=== PATIENT | female | born 1990 | race Caucasian/White ===

== ENCOUNTER 2018-09-20 05:54 | Day surgery (SDC) | payer BC ==
[2018-09-20] VITALS (10 sets, daily range): BP systolic 96–121; BP diastolic 62–74; PULSE 69–80; RESP 11–24; Ht 160 cm; Wt 70.0 kg
[~2018-09-20] VITALS: Ht 160 cm; Wt 70.0 kg
[2018-09-20] MEDS ORDERED: ACETAMINOPHEN 500 MG TAB PO ONE (07:00)
--- NOTE | 2018-09-20 07:04 | PREAC ---
Date/Time of Note Date/Time of Note DATE: 09/20/18 TIME: 07:02 Anesthesia Eval and Record Evaluation Time Pre-Procedure Interview DATE: 09/20/18 TIME: 07:02 Age 27 Sex female NPO: 8 hrs Preoperative diagnosis abnormal pap smear Planned procedure cold knife cone biopsy Past Medical History Past Medical History: None Surgery & Anesthesia Issues No known issue Meds Anticoagulation: No Beta Radhika within 24 hr: No Reason Beta Radhika not given: Pt. not on B-Radhika No Active Prescriptions or Reported Meds Meds reviewed: Yes Allergies Coded Allergies: No Known Allergy (Unverified , 09/20/18) Allergies Reviewed: Yes Labs/Studies Labs Reviewed: Reviewed by anesthesiologist test: Negative Pre-procedure Exam Airway: Adequate mouth opening, Adequate thyromental dist Mallampati: Mallampati II Teeth: Normal Lung: Normal Heart: Normal ASA Physical Status ASA physical status: 1 Emergency: None Planned Anesthetic General/MAC: LMA Pre-operative Attestations Prior to commencing anesthesia and surgery, the patient was re-evaluated, there was verification of: *The patient's identity *The results of appropriate recent lab work and preoperative vital signs *The above evaluation not changing prior to induction *Anesthetic plan, risk benefits, alternative and complications discussed with patient/family; questions answered; patient/family understands, accepts and wishes to proceed. HUBERT QURESHI Sep 20, 2018 07:04
[2018-09-20] MEDS ORDERED: STRONG IODINE 14 ML SOLUTION TOP ONE (07:08)
[2018-09-20] MEDS ORDERED: PROPOFOL 200 MG INJ ONE (07:21)
[2018-09-20] MEDS ORDERED: FENTAnyl 50 MCG/ML VIAL ONE (07:22)
[2018-09-20] MEDS ORDERED: MIDAZOLAM 1 MG/ML 2 ML INJ ONE (07:22)
[2018-09-20] MEDS ORDERED: CEFAZOLIN 1 GM INJ ONE (07:22)
[2018-09-20] MEDS ORDERED: LIDOCAINE 2% (SDV) 5 ML INJ ONE (07:22)
[2018-09-20] MEDS ORDERED: PROPOFOL 40 ML ONE (07:22)
[2018-09-20] MEDS ORDERED: DIPHENHYDRAMINE 50 MG INJ IV PRN (07:30)
[2018-09-20] MEDS ORDERED: hydrALAzine 20 MG INJ IV PRN (07:30)
[2018-09-20] MEDS ORDERED: morphine 2 MG INJ IV PRN ×2 (07:30)
[2018-09-20] MEDS ORDERED: OXYCODONE/ACETAMINOPHEN (5/325) TAB PO PRN ×2 (07:30)
[2018-09-20] MEDS ORDERED: LABETALOL HCL 20MG INJ IV PRN (07:30)
[2018-09-20] MEDS ORDERED: ALBUTEROL 0.083% (NEB) 2.5 MG/3 ML AMP HHN PRN (07:30)
[2018-09-20] MEDS ORDERED: MEPERIDINE 25 MG INJ IV PRN (07:30)
[2018-09-20] MEDS ORDERED: FENTAnyl 50 MCG/ML VIAL IV PRN ×2 (07:30)
[2018-09-20] MEDS ORDERED: ONDANSETRON 4 MG INJ IV PRN (07:30)
[2018-09-20] MEDS ORDERED: HYDROmorphONE 1 MG/5 ML IV SYRINGE IV PRN ×3 (07:30)
[2018-09-20] MEDS ORDERED: LIDOCAINE 1%/EPI 30 ML INJ INJ ONE (07:30)
[2018-09-20] MEDS ORDERED: EPHEDrine 25 MG/5 ML SYG IV PRN (07:30)
[2018-09-20] MEDS ORDERED: LIDOCAINE 1%/EPI 30 ML INJ ONE (07:44)
[2018-09-20] MEDS ORDERED: PHENYLephrine (100 MCG/ML) 10ML SYG ONE (07:57)
[2018-09-20] MEDS ORDERED: KETOROLAC 30 MG INJ ONE (08:35)
--- NOTE | 2018-09-20 08:43 | OPR ---
Operative Report Planned Procedure Procedure date Sep 20, 2018 Procedure(s) 1. Cold knife cone biopsy 2. Endocervical curettage Performed by see signature line Claim Benefit Specialist: ANN MARIE PERSON MD Pre-procedure diagnosis Cervical dysplasia NIC 23 [id number] Anesthesia Type: [id number] MAC Post-Procedure Post-procedure diagnosis Same Estimated Blood Loss: 0 - 10 mls Specimen(s) 1. Cervical cone 2. Endocervical curettings Grafts/Implant(s) none Complication(s) none Procedure Description Pre-Operative Diagnosis: 1. NIC II-III 3. Post-Operative Diagnosis: Same. Procedure: 1. Cold knife cone biopsy 2. Endocervical curettage Prophylaxis: Antibiotic: None thromboembolic:Venodynes Findings: Lugol's with evidence of glycogen depletion in a circumferential matter surrounding the cervix Anesthesia: MAC Surgeon(s): Jim Claim Benefit Specialist(s): Andrea Estimated Blood Loss: 5 ml Intraoperative Fluids: 600 ml Complications: None Pathology Specimen(s): Cervical cone, endocervical curettings Drains: None, rubber catheter used with 120 ml of clear urine Disposition: PACU Condition: Stable Operative Detail: After informed consent was obtained the patient was taken to the operating room where anesthesia was obtained. A time out was performed to confirm the correct patient and procedure and venodynes were applied and functioning prior to anesthesia induction. The patient was placed in dorsal lithotomy. Care was taken to ensure that the hip and knee joints were neither hyperflexed, hyperextended, or excessively abducted. The vagina was prepped in routine fashion. The bladder was drained. The patient was draped in routine fashion for gynecologic surgery. Heavy weighted speculum was placed posteriorly and a right angle retractor anteriorly the cervix was identified and grasped anteriorly with ring forceps. 1% lidocaine with epinephrine was placed at the 12 3 6 and 9:00 positions. Luna cryl was placed at the 3:00 and 9 o'clock position to tamponade the cervical vasculature. 2-0 Monocryl was placed at the 12 3 6 and 9:00 positions. Lugol's solution was applied to the cervix. A 5 Hegar was placed in the cervical loss. A conical potion of tissue encompassing the entire squamocolumnar junction was excised using a 15 blade 1 cm in width and 2 cm in depth. Short suture was at the 12 o'clock position. Bovie cautery and surgicel was used to obtain hemostasis of the cone biopsy bed. All instruments were removed from the patients vagina. The patient was placed in supine postion. All instrument counts were correct. The patient tolerated the procedure well.The patient was extubated and transferred to for recovery. JAYMIE STRICKLAND MD Sep 20, 2018 08:43
--- NOTE | 2018-09-20 08:44 | PAC ---
Date/Time of Note Date/Time of Note DATE: 09/20/18 TIME: 08:43 Post-Anesthesia Notes Post-Anesthesia Note Last documented vital signs Vital Signs Date Temp Pulse Resp B/P Pulse Ox O2 O2 Flow FiO2 Time (MAP) Delivery Rate 09/20/18 97.8 98.4 76 81 18 16 121/74 99 100 Room 07:24 083 (90) 109 Air face mask 6L Activity: WNL Respiratory function: WNL Cardiovascular function: WNL Mental status: Baseline Pain reasonably controlled: Yes Hydration appropriate: Yes Nausea/Vomiting absent: Yes HUBERT QURESHI Sep 20, 2018 08:44
== END 2018-09-20 10:21 | disposition home or self-care (01) ==
LOC: SDS 05:54
PROVIDERS: ATTEND Obstetrics & Gynecology
DX: N87.1 Moderate cervical dysplasia (principal)
CPT/HCPCS: 57520; 86850; 86900; 86901; J0690; J1885; J2250; J2370; J3010; Z7610; 88305